=== PATIENT | female | born 1970 | race Caucasian/White ===

== ENCOUNTER 2016-11-27 18:27 | Emergency (ER) | payer BC ==
[~2016-11-27] VITALS: Ht 165.1 cm; Wt 89.9 kg
[~2016-11-27 18:27] MED LIST: HYDR-3754 PO; METF500T4 PO
--- OUTSIDE RECORDS SUMMARY | 2016-11-27 18:31 | XMS REPORT | Continuity of Care Document ---
Author Author [facility] Address Unknown Phone Unavailable Allergies Active Description Code Type Severity Reaction Onset Reported/Identified Relationship to Patient Clinical Status Yes No Known Drug Allergies [id number] Drug Allergy Unknown N/ A 04/05/2012 Medications Problems Date Dx Coded Attending Type Code Diagnosis Diagnosed By 04/05/2012 Ot 724.4 LUMBOSACRAL NEURITIS NOS 10/03/2014 Ot 724.3 10/03/2014 Ot 571.8 10/03/2014 Ot 787.02 10/03/2014 Ot 789.00 10/10/2014 Ot 724.3 10/10/2014 Ot 571.8 10/10/2014 Ot 787.02 10/10/2014 Ot 789.00 10/10/2014 Alexander KAUR, Abe White Ot 250.00 10/17/2014 Alexander KAUR, Abe White Ot 250.00 10/24/2014 Alexander KAUR, Abe White Ot 789.00 01/17/2015 Alexander KAUR, Abe White Ot 250.00 02/03/2015 Alexander KAUR, Abe White Ot 250.00 02/03/2015 Alexander KAUR, Abe White Ot 272.2 04/28/2015 Alexander KAUR, Abe White Ot 250.00 04/28/2015 Alexander KAUR, Abe White Ot 272.2 01/07/2016 NOBLE OWENS APRN Ot E11.9 TYPE 2 DIABETES MELLITUS WITHOUT COMPLIC 07/15/2016 Ot 724.3 SCIATICA 07/15/2016 Ot 571.8 CHRONIC LIVER DIS NEC 07/15/2016 Ot 787.02 NAUSEA ALONE 07/15/2016 Ot 789.00 ABDOMINAL PAIN, UNSPECIFIED SITE 07/15/2016 Alexander KAUR, Abe White Ot 250.00 DIAB REMI WO COMPL, TYPE II OR UNSPEC TY 07/15/2016 Alexander KAUR, Abe White Ot 789.00 ABDOMINAL PAIN, UNSPECIFIED SITE 07/15/2016 Alexander KAUR, Abe White Ot 250.00 DIAB REMI WO COMPL, TYPE II OR UNSPEC TY 07/15/2016 Alexander KAUR, Abe White Ot 272.2 MIXED HYPERLIPIDEMIA 07/15/2016 Alexander KAUR, Abe White Ot 250.00 DIAB REMI WO COMPL, TYPE II OR UNSPEC TY 07/15/2016 Alexander KAUR, Abe White Ot 272.2 MIXED HYPERLIPIDEMIA 07/15/2016 NOBLE OWENS TANNERY GUMMER Ot E11.9 TYPE 2 DIABETES MELLITUS WITHOUT COMPLIC 07/29/2016 Ot 724.3 SCIATICA 07/29/2016 Ot 571.8 CHRONIC LIVER DIS NEC 07/29/2016 Ot 787.02 NAUSEA ALONE 07/29/2016 Ot 789.00 ABDOMINAL PAIN, UNSPECIFIED SITE 07/29/2016 Alexander KAUR, Abe White Ot 250.00 DIAB REMI WO COMPL, TYPE II OR UNSPEC TY 07/29/2016 Alexander KAUR, Abe White Ot 789.00 ABDOMINAL PAIN, UNSPECIFIED SITE 07/29/2016 Alexander KAUR, Abe White Ot 250.00 DIAB REMI WO COMPL, TYPE II OR UNSPEC TY 07/29/2016 Alexander KAUR, Abe White Ot 272.2 MIXED HYPERLIPIDEMIA 07/29/2016 Alexander KAUR, Abe White Ot 250.00 DIAB REMI WO COMPL, TYPE II OR UNSPEC TY 07/29/2016 Alexander KAUR, Abe White Ot 272.2 MIXED HYPERLIPIDEMIA 07/29/2016 NOBLE OWENS TANNERY GUMMER Ot E11.9 TYPE 2 DIABETES MELLITUS WITHOUT COMPLIC 11/27/2016 Ot 724.3 SCIATICA 11/27/2016 Ot 571.8 CHRONIC LIVER DIS NEC 11/27/2016 Ot 787.02 NAUSEA ALONE 11/27/2016 Ot 789.00 ABDOMINAL PAIN, UNSPECIFIED SITE 11/27/2016 Abe Martinez MD Ot 250.00 DIAB REMI WO COMPL, TYPE II OR UNSPEC TY 11/27/2016 Abe Martinez MD Ot 789.00 ABDOMINAL PAIN, UNSPECIFIED SITE 11/27/2016 Abe Martinez MD Ot 250.00 DIAB REMI WO COMPL, TYPE II OR UNSPEC TY 11/27/2016 Abe Martinez MD Ot 272.2 MIXED HYPERLIPIDEMIA 11/27/2016 Alexander KAUR, Abe White Ot 250.00 DIAB REMI WO COMPL, TYPE II OR UNSPEC TY 11/27/2016 Alexander KAUR, Abe White Ot 272.2 MIXED HYPERLIPIDEMIA 11/27/2016 NOBLE OWENS APRN Ot E11.9 TYPE 2 DIABETES MELLITUS WITHOUT COMPLIC Procedures Code Description Performed By Performed On SPINAL CANAL INJECT NEC 04/05/2012 99.23 INJECT STEROID Results Encounters ACCT No. Visit Date/Time Discharge Status Pt. Type Provider Facility Loc./Unit Complaint [id number] 04/08/2015 07:05:00 2014 23:59:59 CLS Outpatient Alexander KAUR, [facility] LAB [id number] 01/15/2015 07:31:00 2014 23:59:59 CLS Outpatient Alexander KAUR, [facility] LAB [id number] 10/10/2014 14:08:00 2014 23:59:59 CLS Outpatient Alexander KAUR, [facility] LAB [id number] 10/03/2014 11:07:00 2014 23:59:59 CLS Outpatient Alexander KAUR, [facility] LAB LAB DROP OFF DR ALEXANDER OFFICE [id number] 11/27/2016 18:27:00 ACT Emergency AMPARO KAUR, [facility] ED [id number] 12/30/2015 14:03:00 ACT Outpatient NOBLE OWENS APRN [facility] LAB LAB DROP OFF: NOBLE OWENS [id number] 01/08/2013 08:37:00 Document Registration [id number] 04/05/2012 06:45:00 Document Registration [id number] 03/16/2012 11:05:00 Document Registration
--- OUTSIDE RECORDS SUMMARY | 2016-11-27 18:31 | XMS REPORT | Continuity of Care Document ---
Author Author [facility] Address Unknown Phone Unavailable Allergies Active Description Code Type Severity Reaction Onset Reported/Identified Relationship to Patient Clinical Status Yes No Known Drug Allergies [id number] Drug Allergy Unknown N/ A 04/05/2012 Medications [...] Ot 272.2 MIXED HYPERLIPIDEMIA 07/15/2016 NOBLE OWENS [employer] Ot E11.9 TYPE 2 DIABETES MELLITUS WITHOUT [...] Ot 272.2 MIXED HYPERLIPIDEMIA 07/29/2016 NOBLE OWENS [employer] Ot E11.9 TYPE 2 DIABETES MELLITUS WITHOUT [...] Status Pt. Type Provider Facility Loc./Unit Complaint [id number] 04/08/2015 07:05:00 2014 23:59:59 CLS Outpatient Alexander KAUR, [facility] LAB [id number] 01/15/2015 07:31:00 2014 23:59:59 CLS Outpatient Alexander KAUR, [facility] LAB [id number] 10/10/2014 14:08:00 2014 23:59:59 CLS Outpatient Alexander KAUR, [facility] LAB [id number] 10/03/2014 11:07:00 2014 23:59:59 CLS Outpatient Alexander KAUR, [facility] LAB LAB DROP OFF DR ALEXANDER OFFICE [id number] 11/27/2016 18:27:00 ACT Emergency AMPARO KAUR, [facility] ED [id number] 12/30/2015 14:03:00 ACT Outpatient NOBLE OWENS APRN [facility] LAB LAB DROP OFF: NOBLE OWENS [id number] 01/08/2013 08:37:00 Document Registration [id number] 04/05/2012 06:45:00 Document Registration [id number] 03/16/2012 11:05:00 Document Registration
[2016-11-27] MEDS ORDERED: FLUO10TA9 PO (19:07)
[2016-11-27] MEDS ORDERED: OMEP20TA33 PO (19:07)
[2016-11-27] MEDS ORDERED: PANTOPRAZOLE IV 40 MG in SODIUM CHLORIDE FLUSH 10 ML IV ONE (19:20)
[2016-11-27] MEDS ORDERED: ONDANSETRON 2 MG/ML (Z0FRAN) 2 ML VIAL IV ONE (19:20)
[2016-11-27 19:33] LABS: MEAN CORPUSCULAR HEMOGLOBIN 27.9 PG (26.0-34.0); MEAN CORPUSCULAR HGB CONC 34.3 g/dL (31.0-37.0); MEAN CORPUSCULAR VOLUME 81 FL (80-100); MEAN PLATELET VOLUME 10.6 FL (6.0-9.5); PLATELET COUNT 219 10^3uL (150-450); WHITE BLOOD COUNT 10.03 10^3uL (4.0-11.0)
[2016-11-27 19:42] LABS: ANION GAP 17.6 MEQ/L (3-15); CALCULATED IONIZED CALCIUM 3.7 mg/dL (3.8-4.6); TOTAL PROTEIN 7.5 g/dL (6.4-8.5)
[2016-11-27 19:43] LABS: BAND NEUTROPHILS % 1 % (0-6); EOSINOPHILS % 0 % (0-4); LYMPHOCYTES # 0.8 #; MONOCYTES # 0.7 #; MONOCYTES % 7 % (3-11); RBC MORPH NORMAL (NORMAL); SEGMENTED NEUTROPHILS % 84 % (51-67); TOTAL CELLS COUNTED 100
[2016-11-27 19:51] LABS: BILIRUBIN,URINE Negative (Negative); CLARITY,URINE Clear; COLOR,URINE Amber; GLUCOSE, URINE (UA) 2+ (Negative); LEUKOCYTE ESTERASE ,URINE Negative (Negative); PH,URINE 6.5 (5.0 - 8.0); UROBILINOGEN,URINE 0.2 mg/dL (0.2-1.0)
[2016-11-27 20:05] LABS: RBC,URINE 0-2 /HPF; URINE CENTRIFUGED VOLUME 12 mL
--- NOTE | 2016-11-27 20:14 | NUR ---
Pt resting is at the bedside with pt, pt has no complaints at this time. IV fluids continue to run in.
[2016-11-27] MEDS ORDERED: POTASSIUM CHLORIDE ER 20 MEQ TABLET PO ONE (20:30)
[2016-11-27] MEDS ORDERED: ED- ONDANSETRON ODT 4 MG (ZOFRAN) 4 TABLETS/BTL PO ONE (20:30)
[2016-11-27] MEDS ORDERED: POTA-57 PO (20:35)
[2016-11-27 20:47] VITALS: BP 135/78
== END 2016-11-27 20:52 | disposition home or self-care (01) ==
LOC: ED 18:27
DX: T38.3X6A Underdosing of insulin and oral hypoglycemic [antidiabetic] drugs, initial encounter (principal); A08.4 Viral intestinal infection, unspecified; E87.6 Hypokalemia; E86.0 Dehydration; E11.65 Type 2 diabetes mellitus with hyperglycemia; Z79.84 Long term (current) use of oral hypoglycemic drugs; Z91.128 Patient's intentional underdosing of medication regimen for other reason
CPT/HCPCS: 36415; 80053; 81003; 81015; 83690; 85007; 85027; 96361; 96374; 96375; 99284; C9113; J2405; J7030; 99283

== ENCOUNTER → 2016-11-29 | Outpatient (CLI) | payer BC ==
[~2016-11-29] MED LIST changes: +FLUO10TA9 PO; +OMEP20TA33 PO; +POTA-57 PO
--- NOTE | 2016-11-29 19:12 | Diagnostic Imaging Report ---
INDICATION: Chest pain. FINDINGS: The heart size and its configuration normal. The vascular structures are not pathologically dilated. There is no edema, pneumonia, effusion, or pneumothorax. No free air beneath the diaphragms. Cardiomediastinal and hilar contours are normal. IMPRESSION: Normal two-view chest. Dictated by: Dictated on workstation # [id number]
== END ==
LOC: RAD 15:27
PROVIDERS: ATTEND Physician Assistant Surgical
DX: R07.89 Other chest pain (principal)
CPT/HCPCS: 71020

== ENCOUNTER → 2016-11-29 | Outpatient (REF) | payer BC | LOC: LAB 16:04 | PROVIDERS: ATTEND Physician Assistant Surgical | DX: E11.9 Type 2 diabetes mellitus without complications (principal) | CPT/HCPCS: 83036 ==

== ENCOUNTER → 2016-12-03 | Outpatient (CLI) | payer BC ==
[2016-12-03 09:07] LABS: ANION GAP 17.4 MEQ/L (3-15)
== END ==
LOC: LAB 07:49
PROVIDERS: ATTEND Physician Assistant Surgical
DX: E87.6 Hypokalemia (principal)
CPT/HCPCS: 36415; 80048